=== PATIENT | female | born 1955 | race Caucasian/White ===

== ENCOUNTER 2021-10-10 20:25 | Emergency (ER) | payer MEDICARE ==
[~2021-10-10] VITALS: Ht 167.6 cm; Wt 104.5 kg
[2021-10-10 22:22] VITALS: BP 189/92
== END 2021-10-10 22:32 | disposition home or self-care (01) ==
LOC: ED 20:25
DX: S96.911A Strain of unspecified muscle and tendon at ankle and foot level, right foot, initial encounter (principal); I73.9 Peripheral vascular disease, unspecified; D68.9 Coagulation defect, unspecified; W01.10XA Fall on same level from slipping, tripping and stumbling with subsequent striking against unspecified object, initial encounter; Y92.009 Unspecified place in unspecified non-institutional (private) residence as the place of occurrence of the external cause